=== PATIENT | female | born 1990 | race Two or more races ===

== ENCOUNTER 2025-08-26 15:50 | Emergency (ER) | payer SELFPAY ==
[~2025-08-26] VITALS: Ht 157.5 cm; Wt 50.0 kg
[2025-08-26 15:51] VITALS: O2SAT 99
[2025-08-26] MEDS ORDERED: BO1 TP (16:15)
[2025-08-26] MEDS ORDERED: ACET-2708 MT (16:15)
[2025-08-26] MEDS: BACITRACIN ZINC OINT UDPKT TOP ONE (16:38)
[2025-08-26 16:53] VITALS: BP 108/79; PULSE 97; RESP 14; TEMP 36.9; O2SAT 99
== END 2025-08-26 17:15 | disposition home or self-care (01) ==
LOC: ER 15:50
DX: T23.001A Burn of unspecified degree of right hand, unspecified site, initial encounter (principal); Z59.00 Homelessness unspecified; X58.XXXA Exposure to other specified factors, initial encounter; Y93.89 Activity, other specified; Y92.89 Other specified places as the place of occurrence of the external cause; Y99.8 Other external cause status
CPT/HCPCS: 99283